=== PATIENT | male | born 1970 | race Caucasian/White ===

== ENCOUNTER → 2016-08-25 | Outpatient (CLI) | payer BC ==
[~2016-08-25] MED LIST: CORDROL20 MG PO; EPI-PEN1 MG/ML IM; PEPCID20 MG PO; VICODIN ES 7501 TAB PO
== END | disposition home or self-care (01) ==
LOC: ORTHO 02:51
DX: M25.562 Pain in left knee (principal)

== ENCOUNTER → 2016-08-31 | Outpatient (CLI) | payer BC | END | disposition home or self-care (01) | LOC: MRI 13:24 | DX: M25.562 Pain in left knee (principal); M25.462 Effusion, left knee ==

== ENCOUNTER → 2016-09-16 | Outpatient (CLI) | payer BC ==
[~2016-09-16] MED LIST changes: +MOTRIN IB200 M1 PO
[2016-09-16 13:27] LABS: BASO # 0.1 10*3/uL (0.0-0.1); BASO % 0.9 % (0.0-1.0); EOS # 0.3 10*3/uL (0.0-0.4); EOS % 3.1 % (1.0-4.0); HEMATOCRIT 44.9 % (42.0-52.0); HEMOGLOBIN 15.4 g/dl (14.0-18.0); LYMPH # 3.9 10*3/uL (1.3-4.4); LYMPH % 38.4 % (27.0-41.0); MEAN CELL VOLUME 92.4 fl (80.0-94.0); MEAN CORPUSCULAR HGB 31.7 pg (27.0-31.0); MEAN CORPUSCULAR HGB CONC 34.3 g/dl (33.0-37.0); MEAN PLATELET VOLUME 9.5 fl (9.6-12.3); MONO # 0.7 10*3/uL (0.1-1.0); MONO % 6.7 % (3.0-9.0); NEUT # 5.1 10*3/uL (2.3-7.9); NEUT % 50.5 % (47.0-73.0); PLATELET COUNT AUTOMATED 245 10*3/uL (130-400); RED BLOOD COUNT 4.86 10*6/uL (4.50-5.90); RED CELL DISTRI WIDTH 12.6 % (0-14.5); WHITE BLOOD COUNT 10.1 10*3/uL (4.8-10.8)
[2016-09-16 13:49] LABS: BUN 11 mg/dl (7-24); CARBON DIOXIDE 29 mmol/L (21-32); CHLORIDE 105 mmol/L (98-107); EST GLOM FILT AFRICAN AMERICAN > 60 ml/min; GLUCOSE 78 mg/dL (65-99); POTASSIUM 3.9 mmol/L (3.5-5.1); SODIUM 139 mmol/L (136-145)
== END | disposition home or self-care (01) ==
LOC: LAB 12:13
PROVIDERS: Orthopaedic Surgery
DX: Z01.818 Encounter for other preprocedural examination (principal); S83.242A Other tear of medial meniscus, current injury, left knee, initial encounter; F17.200 Nicotine dependence, unspecified, uncomplicated; X58.XXXA Exposure to other specified factors, initial encounter; Y93.89 Activity, other specified; Y92.89 Other specified places as the place of occurrence of the external cause; Y99.8 Other external cause status

== ENCOUNTER → 2016-09-22 | Day surgery (SDC) | payer BC ==
[2016-09-16 12:15] VITALS: BP 110/68
[2016-09-22] VITALS (7 sets, daily range): BP systolic 101–122; BP diastolic 55–64
[~2016-09-22] VITALS: Ht 172.7 cm; Wt 77.1 kg
[~2016-09-22] MED LIST changes: +NORCO 5-325 TA1 EACH PO; +ZOFRAN4 MG PO
--- NOTE | ~2016-09-22 | O ---
[place], [place] OPERATIVE NOTE NAME: [id number] UNIT #: [id number] ROOM: DOCTOR: TORSTEN BOWERS DO BIRTHDATE: [birth year] DOS: 09/22/2016 PREOPERATIVE DIAGNOSES: Left knee loose body, medial meniscus tear, chondromalacia. POSTOPERATIVE DIAGNOSES: Left knee loose body, medial meniscus tear, chondromalacia, lateral plica. OPERATIVE PROCEDURE: Left knee arthroscopy with debridement of the medial meniscus tear, chondroplasty of the medial femoral condyle, removal of loose body, excision of lateral plica. SURGEON: Torsten Bowers DO. TEMP RECRUITER: Yuridia. ANESTHESIA: Rudy Partida CRNA, general LMA intubation. INDICATIONS: The patient is a 46-year-old male with a history of pain and disability about the left knee, unrelieved with conservative care. The risks and benefits of the procedure were explained to the patient preoperatively. Preoperative labs and x-rays were obtained including preoperative MRI. DESCRIPTION OF PROCEDURE: Left knee was marked in the holding room. The patient was brought to the operative suite. Timeout was performed. The patient was placed supine on the operative table. General anesthetic with LMA intubation was performed. Left lower extremity was placed in a leg trejo. Left lower extremity was prepped and draped in the usual orthopedic manner. Area about the medial and lateral parapatellar portals were injected with Marcaine 0.5% with epinephrine. The lateral portal was created using a #11 blade followed by blunt trocar and cannula. The trocar was removed. The cannula remained. The inflow and outflow were established through the cannula. The arthroscopy camera was placed in the cannula as well. The medial portal was created using a spinal needle followed by #11 blade and a blunt trocar. The knee was evaluated in a systematic fashion. The medial compartment was noted to have grade 2 chondromalacia about the medial femoral condyle as well as a degenerative meniscus tear in the posterior medial 1/3rd of the meniscus. The meniscus tear was debrided using handheld instrumentation, a full radius resector, and an Arthrocare wand. The articular surface was gently debrided using a full radius resector and handheld kayla ball rasp. The notch was identified and evaluated. The ACL was noted to be intact to probing and anterior drawer test. Lateral compartment was identified and evaluated. The articular surface was intact. The lateral meniscus was intact to probing and direct visualization. There was noted to be a loose body within the lateral compartment. This was [place], [place] OPERATIVE NOTE NAME: DEYSI BARKER UNIT #: [id number] ROOM: DOCTOR: TORSTEN BOWERS DO BIRTHDATE: [birth year] removed using the full radius resector. Patellofemoral joint was identified and evaluated. There was noted to be lateral patellofemoral plica. The instrumentation was switched using an arthroscopy camera medially and instrumentation laterally. All compartments were again identified and evaluated. Further debridement was performed about the medial femoral condyle and the medial meniscus. The lateral femoral plica were removed using the full radius resector as well as an Arthrocare wand. The articular surface of the patella and the femoral groove were noted to be grossly intact. There was minimal synovitis in this region, which was debrided with the Arthrocare wand. There was no further repairable or debridable pathology was present. The was copiously irrigated with remainder of lactated Ringer's with epinephrine. Instrumentation was removed. The portals were expressed of any excess fluid. The portals were closed with 3-0 Prolene. The knee was injected with Marcaine 0.5% with epinephrine. Xeroform, 4 x 4s, Webril, and ABDs followed by an Ren bandage were used to dress the wound. The anesthetic was reversed. The patient was extubated and taken to recovery room in satisfactory condition. Sponge and needle count correct. ESTIMATED BLOOD LOSS: 5 mL. DRAINS: None. SPECIMENS: None. PACKING: None. COMPLICATIONS: None. FINDINGS: Posterior medial meniscus tear, loose body lateral compartment, chondromalacia grade 2 medial femoral condyle, lateral patellar plica. [place], [place] OPERATIVE NOTE NAME: DEYSI BARKER UNIT #: [id number] ROOM: DOCTOR: BIN SMITHTORSTEN BIRTHDATE: [birth year] TORSTEN BOWERS DO CM:OPRECORD:OPERATIVE NOTE [id number] TORSTEN BOWERS DO 09/22/16 1006 interface
== END | disposition home or self-care (01) ==
LOC: SDC 09-16 09:30
DX: M23.204 Derangement of unspecified medial meniscus due to old tear or injury, left knee (principal); M23.42 Loose body in knee, left knee; M94.262 Chondromalacia, left knee; M67.52 Plica syndrome, left knee; K21.9 Gastro-esophageal reflux disease without esophagitis; F17.210 Nicotine dependence, cigarettes, uncomplicated

== ENCOUNTER → 2017-08-14 | Outpatient (CLI) | payer BC | END | disposition home or self-care (01) | LOC: ORTHO 10:32 | DX: M25.562 Pain in left knee (principal) ==

== ENCOUNTER → 2018-02-03 | Outpatient (CLI) | payer BC | END | disposition home or self-care (01) | LOC: RAD 08:49 | DX: K59.00 Constipation, unspecified (principal); R14.0 Abdominal distension (gaseous) ==

== ENCOUNTER 2018-11-28 07:57 | Emergency (ER) | payer BC ==
[~2018-11-28] VITALS: Ht 172.7 cm; Wt 77.1 kg
[~2018-11-28 07:57] MED LIST changes: -DUEXIS 800-26.1 EACH PO
[2018-11-28] MEDS ORDERED: DUEXIS 800-26.1 EACH PO (08:00)
== END 2018-11-28 08:14 | disposition home or self-care (01) ==
LOC: ED 07:57
DX: H10.9 Unspecified conjunctivitis (principal); Z79.899 Other long term (current) drug therapy

== ENCOUNTER → 2018-11-28 | Outpatient (CLI) | payer BC ==
[~2018-11-28] MED LIST changes: +DUEXIS 800-26.1 EACH PO
== END | disposition home or self-care (01) ==
LOC: MRI 10:33
DX: M48.061 Spinal stenosis, lumbar region without neurogenic claudication (principal); M51.26 Other intervertebral disc displacement, lumbar region; M12.88 Other specific arthropathies, not elsewhere classified, other specified site

== ENCOUNTER → 2019-10-25 | Outpatient (CLI) | payer BC ==
[~2019-10-25] MED LIST changes: +DUEXIS 800-26.1 EACH PO
== END | disposition home or self-care (01) ==
LOC: RAD 15:35
DX: M79.642 Pain in left hand (principal)